=== PATIENT | male | born 1970 | race Caucasian/White ===

== ENCOUNTER → 2016-07-26 | Outpatient (CLI) | payer BC | LOC: EMI 14:29 | DX: M25.512 Pain in left shoulder (principal); M54.12 Radiculopathy, cervical region; M50.223 Other cervical disc displacement at C6-C7 level; M75.102 Unspecified rotator cuff tear or rupture of left shoulder, not specified as traumatic; S46.012A Strain of muscle(s) and tendon(s) of the rotator cuff of left shoulder, initial encounter | CPT/HCPCS: 72141; 73221 ==